=== PATIENT | male | born 1960 | race Hispanic/Latino ===

== ENCOUNTER 2018-07-23 08:43 | Emergency (ER) | payer BC, OTHER ==
[2018-07-23 08:49] VITALS: BP 167/97
[2018-07-23] MEDS ORDERED: FLEXERIL PO ONE (09:03)
[2018-07-23] MEDS ORDERED: TORADOL IM ONE (09:03)
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
--- NOTE | 2018-07-23 09:25 | XRay Report ---
CERVICAL SPINE, 3 views: History: Neck pain. Findings: There is been previous anterior fusion from C5-7 which appears intact. Minimal degenerative disc disease is noted just superior and inferior to the fusion. There is no evidence for fracture, malalignment or bony lesion. The posterior elements are intact. The prevertebral soft tissues are normal thickness. Impression: Stable appearance of the anterior fusion changes. No evidence for acute injury to the cervical spine.
== END 2018-07-23 10:04 | disposition home or self-care (01) ==
LOC: ED 08:43
DX: M79.18 Myalgia, other site (principal); M54.2 Cervicalgia; M54.9 Dorsalgia, unspecified; I10 Essential (primary) hypertension; E11.9 Type 2 diabetes mellitus without complications; J44.9 Chronic obstructive pulmonary disease, unspecified; F17.200 Nicotine dependence, unspecified, uncomplicated; V49.49XA Driver injured in collision with other motor vehicles in traffic accident, initial encounter; Y93.89 Activity, other specified; Y92.488 Other paved roadways as the place of occurrence of the external cause; Y99.8 Other external cause status
CPT/HCPCS: 72040; 96372; 99283; J1885

== ENCOUNTER 2020-07-03 08:12 | Outpatient (CLI) | payer BC ==
--- NOTE | 2020-07-03 09:09 | Ultrasound Report ---
ULTRASOUND SOFT TISSUE HEAD AND NECK HISTORY: Left preauricular mass, patient felt area for 2 months with no change in size. TECHNIQUE: Grayscale ultrasound with color Doppler imaging. COMPARISON: None. FINDINGS: Targeted ultrasound was performed in the left preauricular region at the site of a palpable masslike lesion. The images demonstrate a 2.2 x 0.9 x 1.7 cm unilocular cyst. This appears to be rosalinda ng the anterior margin of the left parotid gland. There is no internal complexity or septation. No in ternal perfusion on color Doppler. No suspicious mass or adenopathy. IMPRESSION: Small cyst in the left preauricular region as described. This appears to be arising from the anterior margin of the left parotid gland. No suspicious mass or adenopathy. Signer Name: Samir Mo Jr, MD Signed: 07/03/2020 9:04 AM Workstation Name: [id number]
== END 2020-07-03 08:13 | disposition home or self-care (01) ==
LOC: US 08:12
PROVIDERS: ATTEND Family Medicine
DX: Q18.1 Preauricular sinus and cyst (principal)
CPT/HCPCS: 76536